=== PATIENT | female | born 1930 | race Caucasian/White ===

== ENCOUNTER 2017-12-25 17:01 | Inpatient (IN) | payer OTHER, MEDICAID ==
[~2017-12-25] VITALS: Ht 157.5 cm; Wt 49.9 kg
[2017-12-25 17:01] VITALS: BP_SYST 73; BP_SYST 96; BP_DIAS 37; BP_DIAS 45
[~2017-12-25 17:01] MED LIST: AMLO5TAB8 PO; ASPI-1271 PO; CARV3.12 PO; CHOL100011 PO; DOCU-299 PO; LEVO0.0712 PO; LISI10TA11 PO; OMEP40EC1 PO; SIMV10TA1 PO; VITA1TAB83 PO
--- NOTE | 2017-12-25 17:04 | NUR ---
PATIENT BIBA TO ED BED 2 AT THIS TIME.
[2017-12-25] MEDS ORDERED: ACET-2619 PO (17:14)
--- NOTE | 2017-12-25 17:18 | NUR ---
PATIENT [facility]ILA FROM [facility] FOR ALOC AFTER COMPLETING DIALYSIS. PT HAS BEEN ALOC FOR APPROX 15 MINS WITH INCREASED LETHARGY;UPOMN ARRIVAL TO ER PT IS RESPONDING TO QUESTIONS AND TALKING;EDEMA NOTED ON BUE AND BLE;HX OF ANEMIA, ACUTE RENAL FAILURE, PACEMAKER;LEFT UPPER CHEST MICHELLE CATH;OLD RIGHT ARM SHUNT .DRY SCAB NOTED ON BLE;SKIN IS PINK/WARM/DRY; ALERT AND AWAKE;PATIENT POSITIONED FOR COMFORT; HOB ELEVATED; BEDRAILS UP X2; BED DOWN. ALL MONITORS IN PLACED;ER MD MADE AWARE OF PT STATUS.
[2017-12-25] MEDS ORDERED: NACL 0.9% 250 ML IV ONE ×3 (17:20→20:40)
[2017-12-25 18:09] LABS: BASOPHILS # (AUTO) 0.2 K/uL (0.00-0.22); BASOPHILS % (AUTO) 1.6 % (0.0-2.0); EOSINOPHILS # (AUTO) 0.1 K/uL (0-0.4); EOSINOPHILS % (AUTO) 0.5 % (0.0-4.0); HEMATOCRIT 23.1 % (36-48); HEMOGLOBIN 7.5 g/dL (12.0-16.0); LYMPHOCYTES # (AUTO) 0.5 K/uL (2.5-16.5); LYMPHOCYTES % (AUTO) 3.4 % (20.5-51.1); MEAN CORPUSCULAR HEMOGLOBIN 31 pg (27-31); MEAN CORPUSCULAR HGB CONC 32 g/dL (33-37); MEAN CORPUSCULAR VOLUME 97 fL (80-94); MONOCYTES # (AUTO) 0.6 K/uL (0.8-1.0); MONOCYTES % (AUTO) 3.6 % (1.7-9.3); NEUTROPHILS # (AUTO) 14.1 K/uL (1.8-7.7); NEUTROPHILS % (AUTO) 90.9 % (42.2-75.2); PLATELET COUNT (AUTO) 136 K/uL (140-450); RED BLOOD CELL COUNT(AUTO) 2.39 MIL/uL (4.20-5.40); RED CELL DISTRIBUTION WIDTH 14.2 % (11.6-13.7); WHITE BLOOD COUNT (AUTO) 15.5 K/uL (4.8-10.8)
[2017-12-25 18:27] LABS: APPEARANCE,URINE CLOUDY (CLEAR); BLOOD, URINE LARGE (NEGATIVE); COLOR,URINE YELLOW (YELLOW); UGLUCOSE NEGATIVE (NEGATIVE)
[2017-12-25 18:28] LABS: BILIRUBIN,URINE NEGATIVE (NEGATIVE); LEUKOCYTE ESTERASE ,URINE 3+ (NEGATIVE); NITRITE, URINE NEGATIVE (NEGATIVE)
[2017-12-25 18:28] LABS: PROTHROMBIN TIME 12.4 secs (10.8-13.4)
[2017-12-25 18:30] LABS: ALBUMIN 1.3 g/dL (3.4-5.0); ANION GAP 10.1 (8-16); ASPARTATE AMINOTRANSFERASE 17 U/L (15-37); CARBON DIOXIDE 30.5 mmol/L (21-32); CHLORIDE 105 mmol/L (98-107); CREATININE 1.6 mg/dL (0.6-1.3); GLUCOSE 104 mg/dL (74-106); SODIUM SERUM 143 mmol/L (136-145); TOTAL BILIRUBIN 0.2 mg/dL (0.0-1.0); UREA NITROGEN, BLOOD 26 mg/dL (7-18)
[2017-12-25 18:35] LABS: POTASSIUM 2.6 mmol/L (3.5-5.1)
[2017-12-25 18:37] LABS: RBC,URINE 11-20 (MOD) /HPF (0-5); WBC,URINE 80-100 /HPF (0-5)
[2017-12-25] MEDS ORDERED: LEVOFLOXACIN 500 MG/D5W PREMIX 100 ML IV ONE (18:55)
--- NOTE | 2017-12-25 19:25 | NUR ---
REPORT RECEIVED AND WOUND PICTURES TAKEN ON DAY SHIFT BY ABE ANDERS.
--- NOTE | 2017-12-25 19:27 | NUR ---
Pt report given to milena Zaidi. Transfer of care at this time.
[2017-12-25] MEDS ORDERED: NACL 0.9% 1,000 ML IV SCH (19:42)
[2017-12-25] MEDS ORDERED: ONDANSETRON 4 MG/2 ML VIAL IVP PRN (19:45)
[2017-12-25] MEDS ORDERED: KCL 20 MEQ/WATER INJ PREMIX 200 ML IV SCH (19:50)
[2017-12-25] MEDS ORDERED: POTASSIUM CHLORIDE 10 MEQ TABER PO SCH (19:50)
--- NOTE | 2017-12-25 20:15 | NUR ---
DR LUNA MADE AWARE OF PT STATUS REGARDING BP. NS BOLUS ORDERED.
[2017-12-25 20:31] LABS: CHOL/HDL RATIO 3.3 (1-4.5); FREE T4 (FREE THYROXINE) 0.32 ng/dL (0.76-1.46); MAGNESIUM 1.6 mg/dL (1.8-2.4); PHOSPHORUS 3.4 mg/dL (2.5-4.9); THYROID STIMULATING HORMONE 57.03 uIU/mL (0.34-3.74)
[2017-12-25] MEDS ORDERED: ALBUTEROL SULFATE/IPRATROPIU 3 ML SOL IH PRN (20:55)
[2017-12-25 20:56] VITALS: BP 132/62
--- NOTE | 2017-12-25 20:56 | NUR ---
RECEIVED PATIENT FROM ER. PATIENT A&OX3. PATIENT DENIES PAIN. PATIENT HAS 5L NON REBREATHER MASK PATENT AND INTACT O2 AT 95%, PATIENT HAS SACRAL WOUND, BILATERAL DISCOLORATION ON LOWER AND UPPER EXTREMITIES, WOUND ON LEFT HEEL, WOUND ON TWO RIGHT TOES (BIG TOE AND SECOND TOE), BILATERAL WOUNDS ON KNEES. PATIENT HAS AV SHUNT ON RIGHT ARM, LEFT CHEST HAS MICHELLE CATH PATIENT STATES IS PATENT. IV SITE PATENT AND INTACT. PATIENT HAD BOWEL MOVEMENT UPON TRANSFER TO BED, PATIENT CLEANED, LINENS CHANGES. TELE BOX IN PLACE. PATIENT IS MISSING SEVERAL TEETH, STATES SHE WEARS DENTURES UPPER AND LOWER. NO SIGNS OR SYMPTOMS OF ACUTE DISTRESS NOTED. PATIENT ORIENTED TO UNIT. CALL LIGHT WITHIN REACH. WILL CONTINUE TO MONITOR.
--- NOTE | 2017-12-25 21:00 | NUR ---
NS BOLUS COMPLETE. BP RETURNED TO BASELINE.
--- NOTE | 2017-12-25 21:05 | NUR ---
Patient will be admitted to care of DR LAZARO. Admited to TELE. Will go to room 121A. Belongings list completed. Report to ABE GREGG.
--- NOTE | 2017-12-25 21:55 | NUR ---
PT HAS SPUTUM CUP. UNABLE TO PROVIDE SPUTUM AT THIS TIMR. ABE GREGG AT BEDSIDE.
[2017-12-25] MEDS: DOCUSATE SODIUM 100 MG GELCAP PO SCH (21:56)
--- NOTE | 2017-12-25 21:58 | NUR ---
REQUESTED SPUTUM SPECIMEN FROM PATIENT. PATIENT DENIES HAVING SPUTUM TO GIVE BUT WILL TRY THROUGH SHIFT.
[2017-12-25] MEDS ORDERED: POTASSIUM CHLORIDE 10 MEQ TABER PO ONE (21:59)
[2017-12-25] MEDS ORDERED: MAG SULF 2000 MG/WATER PREMIX 50 ML IV SCH (23:20)
[2017-12-26] VITALS: BP 103/53
--- NOTE | 2017-12-26 00:15 | NUR ---
ENCOURAGED PATIENT FOR SPUTUM CULTURE. UNABLE TO OBTAIN AT THIS TIME. WILL TRY AGAIN.
[2017-12-26] MEDS ORDERED: CLINDAMYCIN 600 MG/4 ML VIAL ONE (00:31)
--- NOTE | 2017-12-26 00:33 | NUR ---
IV POTASSIUM INFUSING. PER MD HOLD MIDNIGHT CLEOCIN
[2017-12-26 00:40] LABS: ANION GAP 7.9 (8-16); CARBON DIOXIDE 32.8 mmol/L (21-32); CHLORIDE 104 mmol/L (98-107); CREATININE 1.8 mg/dL (0.6-1.3); GLUCOSE 90 mg/dL (74-106); POTASSIUM 3.7 mmol/L (3.5-5.1); SODIUM SERUM 141 mmol/L (136-145); UREA NITROGEN, BLOOD 32 mg/dL (7-18)
[2017-12-26] MEDS ORDERED: MAGNESIUM OXIDE 400 MG TAB PO SCH (00:45)
[2017-12-26 04:00] VITALS: BP 98/55
[2017-12-26] MEDS ORDERED: NACL 0.9% 250 ML IV ONE (04:15)
--- NOTE | 2017-12-26 04:36 | NUR ---
PATIENT HAD A BOWEL MOVEMENT. SACRAL DRESSINGS CHANGED, MINIMAL DRAINAGE, SEROSANGUINOUS. PATIENT TOLERATED WELL. PATIENT TURNED, OFFLOAD ON PRESSURE SITES. NO SIGNS OF ACUTE DISTRESS NOTED. SAFETY MEASURES ENSURED. CALL LIGHT WITHIN REACH. WILL CONTINUE TO MONITOR.
--- NOTE | 2017-12-26 05:46 | NUR ---
REQUESTED SYNTHROID FROM WOODWORKING [employer].. WILL ADMINISTER WHEN AVAILABLE.
[2017-12-26] MEDS: CLINDAMYCIN 600 MG in DEXTROSE 5% 50 ML IV SCH ×3 (05:55)
--- NOTE | 2017-12-26 06:15 | NUR ---
ENCOURAGED PATIENT FOR SPUTUM CULTURE. PATIENT IS UNABLE TO PROVIDE ONE. WILL ENDORSE TO AM SHIFT.
[2017-12-26] MEDS ORDERED: LEVOTHYROXINE 0.088 MG TAB PO SCH (06:30)
[2017-12-26] MEDS: ALBUTEROL SULFATE/IPRATROPIU 3 ML SOL IH SCH ×2 (07:16→13:20)
--- NOTE | 2017-12-26 07:28 | NUR ---
ENDORSED PLAN OF CARE TO AM RN. PATIENT IN STABLE CONDITION.
--- NOTE | 2017-12-26 07:29 | NUR ---
RECEIVED PATIENT FROM STUDENT FINANCIAL SERVICES COUNSELOR NURSE AT BEDSIDE FOR CONTINUITY OF CARE. PATIENT A&OX3, CONFUSED. PATIENT DENIES PAIN. PATIENT HAS 3L NC O2 AT 95%, PATIENT HAS SACRAL WOUND, BILATERAL DISCOLORATION ON LOWER AND UPPER EXTREMITIES, WOUND ON LEFT HEEL, WOUND ON TWO RIGHT TOES (BIG TOE AND SECOND TOE), BILATERAL WOUNDS ON KNEES. PATIENT HAS AV SHUNT ON RIGHT ARM, LEFT CHEST HAS MICHELLE CATH PATIENT, STATES IS PATENT. IV SITE PATENT AND INTACT. NO SIGNS OR SYMPTOMS OF ACUTE DISTRESS NOTED. SAFETY PRECAUTIONS IN PLACE, CALL LIGHT WITHIN REACH. WILL CONTINUE TO MONITOR PATIENT.
[2017-12-26] MEDS ORDERED: LEVOTHYROXINE 0.025 MG TAB PO ONE (07:55)
[2017-12-26 08:00] VITALS: BP 130/79
--- NOTE | 2017-12-26 08:26 | NUR ---
PATIENT HAS BEEN SCREENED AND CATEGORIZED HIGH NUTRITION RISK. PATIENT WILL BE SEEN WITHIN 1-2 DAYS OF ADMISSION. 12/25/17-12/26/[address]
[2017-12-26 08:58] LABS: HEMATOCRIT 27.9 % (36-48); HEMOGLOBIN 9.1 g/dL (12.0-16.0); MEAN CORPUSCULAR HEMOGLOBIN 32 pg (27-31); MEAN CORPUSCULAR HGB CONC 33 g/dL (33-37); MEAN CORPUSCULAR VOLUME 97 fL (80-94); PLATELET COUNT (AUTO) 134 K/uL (140-450); RED BLOOD CELL COUNT(AUTO) 2.88 MIL/uL (4.20-5.40); RED CELL DISTRIBUTION WIDTH 14.5 % (11.6-13.7); WHITE BLOOD COUNT (AUTO) 19.5 K/uL (4.8-10.8)
[2017-12-26] MEDS ORDERED: LEVOTHYROXINE 0.1 MG TAB PO SCH (09:00)
[2017-12-26] MEDS ORDERED: LACTOBACILLUS RHAMNOSUS GG 1 EACH CAP PO SCH (09:00)
[2017-12-26] MEDS ORDERED: LEVOTHYROXINE 0.075 MG TAB PO SCH (09:00)
[2017-12-26] MEDS ORDERED: CHOLECALCIFEROL 1,000 IU TAB PO SCH (09:00)
[2017-12-26] MEDS ORDERED: LISINOPRIL 10 MG TAB PO SCH (09:00)
[2017-12-26] MEDS ORDERED: CYANOCOBALAMIN 100 MCG TAB PO SCH (09:00)
[2017-12-26] MEDS ORDERED: FOLIC ACID 1 MG TAB PO SCH (09:00)
[2017-12-26] MEDS ORDERED: PANTOPRAZOLE 40 MG TABEC PO SCH (09:00)
[2017-12-26] MEDS ORDERED: CARVEDILOL 3.125 MG TAB PO SCH (09:00)
[2017-12-26 09:07] LABS: EOSINOPHILS % (MANUAL) 1 % (0-4); LYMPHOCYTES % (MANUAL) 4 % (20-46); MONOCYTES % (MANUAL) 3 % (5-12)
[2017-12-26] MEDS ORDERED: VANCOMYCIN PER PHARMACY MC PRN (09:20)
[2017-12-26 09:45] LABS: ANION GAP 8.4 (8-16); CARBON DIOXIDE 32.4 mmol/L (21-32); CHLORIDE 105 mmol/L (98-107); CREATININE 1.9 mg/dL (0.6-1.3); GLUCOSE 102 mg/dL (74-106); POTASSIUM 4.8 mmol/L (3.5-5.1); SODIUM SERUM 141 mmol/L (136-145); UREA NITROGEN, BLOOD 33 mg/dL (7-18)
[2017-12-26] MEDS ORDERED: MEROPENEM 500 MG in NACL 0.9% 50 ML IV SCH ×2 (09:45→21:00)
[2017-12-26 09:49] LABS: MAGNESIUM 2.1 mg/dL (1.8-2.4); PHOSPHORUS 4.6 mg/dL (2.5-4.9)
--- NOTE | 2017-12-26 09:50 | NUR ---
DR. CHU IN TO SEE THE PATIENT. WILL AWAIT NEW ORDERS.
--- NOTE | 2017-12-26 09:58 | NUR ---
ADMINISTERED ORDERED MEDICATIONS. PATIENT TOLERATED THEM WELL. BP 148/72 ON LEFT CALF. SAFETY PRECAUTIONS IN PLACE, BED ON LOWEST SETTING, BED ALARM ON, CALL LIGHT WITHIN REACH. WILL CONTINUE TO MONITOR.
[2017-12-26] MEDS: DOCUSATE SODIUM 100 MG GELCAP PO SCH (09:59)
--- NOTE | 2017-12-26 10:16 | NUR ---
SUPERVISOR SHELLFISH FARMING DOING AND ECHOCARDIOGRAM ON PATIENT. WILL AWAIT FOR RESULTS.
[2017-12-26] MEDS ORDERED: VANCOMYCIN 1GM/DEXT 5% PREMIX 200 ML IV SCH (11:00)
--- NOTE | 2017-12-26 11:45 | NUR ---
ANTIBIOTICS MERREM RUNNING. NO SIGNS OF DISTRESS OR SOB NOTED. PATIENT DENIES PAIN. SAFETY PRECAUTIONS IN PLACE, BED ON LOWEST SETTING, BED ALARM ON, CALL LIGHT WITHIN REACH. WILL CONTINUE TO MONITOR PATIENT.
--- NOTE | 2017-12-26 11:45 | NUR ---
ECHO DONE. NOTIFIED PHYSICIAN OF FINDINGS.
[2017-12-26 12:00] VITALS: BP 98/49
--- NOTE | 2017-12-26 12:35 | NUR ---
PATIENT EATING LUNCH, NO SIGNS OF DISTRESS NOTED. PATIENT DENIES PAIN. SAFETY PRECAUTIONS IN PLACE, BED ON LOWEST POSITION, BED ALARM ON, CALL LIGHT WITHIN REACH. WILL CONTINUE TO MONITOR PATIENT.
--- NOTE | 2017-12-26 12:35 | NUR ---
CM NOTE INITIAL REVIEW FAXED TO [facility] [phone] JOSE # [phone]
--- NOTE | 2017-12-26 12:45 | NUR ---
PATIENT SITTING UP AND EATING PUREED LUNCH. NO SIGNS OF DISTRESS OR SOB NOTED. PATIENT DENIES PAIN. SAFETY PRECAUTIONS IN PLACE, BED IN LOWEST SETTING, BED ALARM ON, CALL LIGHT WITHIN REACH. WILL CONTINUE TO MONITOR PATIENT.
--- NOTE | 2017-12-26 13:00 | NUR ---
VANCOMYCIN INFUSING WELL. NO S/SX OF REACTION NOTED. NO SIGNS OF DISTRESS OR SOB NOTED. PATIENT DENIES PAIN. SAFETY PRECAUTIONS IN PLACE, BED ON LOWEST SETTING, BED ALARM ON, CALL LIGHT WITHIN REACH. WILL CONTINUE TO MONITOR PATIENT.
--- NOTE | 2017-12-26 13:00 | NUR ---
I attempted to contact Patient's sister Kristina Carvalho at . No response and left a MSG to call back.
--- NOTE | 2017-12-26 13:15 | NUR ---
SISTER REJI CALLED, UPDATED HER ON PATIENT'S CONDITION AND PLAN OF CARE. SISTER VERBALIZED UNDERSTANDING. RT CURRENTLY WITH PATIENT. SAFETY PRECAUTIONS IN PLACE, BED IN LOWEST SETTING, BED ALARM ON, CALL LIGHT WITHIN REACH. WILL CONTINUE TO MONITOR PATIENT.
--- NOTE | 2017-12-26 13:30 | NUR ---
POLICY CANCELLATION CLERK STATED THAT PATIENT WILL BE GIVEN DIALYSIS IN 1 HOUR.
--- NOTE | 2017-12-26 14:10 | NUR ---
TOOL FILER, TAVARES, IN TO DO WOUND ASSESSMENT AND DRESSING WITH PRIMARY RN, MICHELLE. HOWEVER, PATIENT BECAME UNRESPONSIVE, MATTHEW MCWILLIAMS WAS CALLED, COMPRESSIONS WERE STARTED. RESIDENTS DR. HENDERSON AND DR. HIGH ON THE SCENE, ER MD, DR HU CAME OVERSEE CODE.
--- NOTE | 2017-12-26 14:27 | NUR ---
1425 CALL PLACED TO PT'S SISTER REJI JACKSON AND INFORMED HER THAT PT HAS HAD A CHANGE IN CONDITION AND THAT FAMILY SHOULD COME TO THE FACILITY IF POSSIBLE. PER REJI PT DOES NOT HAVE ANY CHILDREN AND SHE IS PT'S CLOSEST RELATIVE. REJI STATED THAT SHE WOULD CALL HER SON NOW AND TRY TO GET TO THE HOSPITAL.
--- NOTE | 2017-12-26 14:40 | NUR ---
CHEST COMPRESSIONS HELD FOR RHYTHM CHECK. ASYSTOLE WAS FOUND. PATIENT HAD AGONAL BREATHING AND PULSE FOUND ON DOPPLER US. BP 125/96. PATIENT INTUBATED. PATIENT WILL BE TRANSFERRED TO ICU.
--- NOTE | 2017-12-26 14:43 | NUR ---
PATIENT BECAME UNRESPONSIVE. SECOND CODE BLUE INITIATED. COMPRESSIONS STARTED AT 1445. TIME OF CALLED AT 1500.
[2017-12-26] MEDS ORDERED: NOREPINEPHRINE 4 MG in DEXTROSE 5% 250 ML IV PRN ×2 (14:50→15:10)
--- NOTE | 2017-12-26 15:00 | NUR ---
TIME OF PRONOUNCED BY DR. HU AT 1500.
--- NOTE | 2017-12-26 15:30 | NUR ---
[facility] WAS CALLED.
--- NOTE | 2017-12-26 15:45 | NUR ---
DR. RAJPUT WAS CALLED TO UPDATE HIM ABOUT PATIENT' CONDITION.
--- NOTE | 2017-12-26 16:30 | NUR ---
THE CHIEF MEDIA OFFICER WAS CALLED, AFTER REVIEW OF THE PATIENT'S HISTORY AND COMORBIDITIES, PATIENT'S CASE WAS CLEARED BY CHIEF MEDIA OFFICER PERSONNEL NAMED SARITA, AND PATIENT CAN BE RELEASED TO THE [facility] [place]. . FAMILY, SISTER REJI, AND NEPHEW, ED, AT BEDSIDE.
[2017-12-26] MEDS ORDERED: amLODIPine 5 MG TAB PO SCH (17:00)
[2017-12-26] MEDS ORDERED: SIMVASTATIN 10 MG TAB PO SCH (17:00)
--- NOTE | 2017-12-26 17:20 | NUR ---
[facility] [employer] WAS CALLED. HISTORY AND TIME OF OF PATIENT GIVEN. THEY STATED THAT THEY WILL COME TO TAKE THE PATIENT. WILL AWAIT THEIR ARRIVAL.
--- NOTE | 2017-12-26 19:30 | NUR ---
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
[2017-12-27] MEDS ORDERED: LEVOTHYROXINE 0.1 MG TAB PO SCH (06:30)
[2017-12-27] MEDS ORDERED: ASPIRIN 81 MG TAB.CHEW PO SCH (09:00)
[2017-12-27] MEDS ORDERED: LEVOFLOXACIN 500 MG/D5W PREMIX 100 ML IV SCH (21:00)
== END 2017-12-26 19:30 | disposition expired | DRG 871 ==
LOC: MED 17:01 → MTU 19:47
PROVIDERS: ADMIT Family Medicine Sports Medicine; ATTEND Family Medicine Sports Medicine
PROC: 5A12012 Performance of Cardiac Output, Single, Manual (ICD-10-PCS; principal; 2017-12-26)
DX: A41.9 Sepsis, unspecified organism (principal); J69.0 Pneumonitis due to inhalation of food and vomit; N17.0 Acute kidney failure with tubular necrosis; I46.8 Cardiac arrest due to other underlying condition; E43 Unspecified severe protein-calorie malnutrition; G93.1 Anoxic brain damage, not elsewhere classified; G93.41 Metabolic encephalopathy; L89.159 Pressure ulcer of sacral region, unspecified stage; I50.43 Acute on chronic combined systolic (congestive) and diastolic (congestive) heart failure; N18.6 End stage renal disease; N39.0 Urinary tract infection, site not specified; N17.9 Acute kidney failure, unspecified; I13.0 Hypertensive heart and chronic kidney disease with heart failure and stage 1 through stage 4 chronic kidney disease, or unspecified chronic kidney disease; I69.354 Hemiplegia and hemiparesis following cerebral infarction affecting left non-dominant side; M48.55XA Collapsed vertebra, not elsewhere classified, thoracolumbar region, initial encounter for fracture; E11.52 Type 2 diabetes mellitus with diabetic peripheral angiopathy with gangrene; L97.429 Non-pressure chronic ulcer of left heel and midfoot with unspecified severity; L97.419 Non-pressure chronic ulcer of right heel and midfoot with unspecified severity; E11.42 Type 2 diabetes mellitus with diabetic polyneuropathy; E11.22 Type 2 diabetes mellitus with diabetic chronic kidney disease; E03.9 Hypothyroidism, unspecified; K21.9 Gastro-esophageal reflux disease without esophagitis; E78.5 Hyperlipidemia, unspecified; M62.50 Muscle wasting and atrophy, not elsewhere classified, unspecified site; R65.20 Severe sepsis without septic shock; L89.319 Pressure ulcer of right buttock, unspecified stage; S81.809A Unspecified open wound, unspecified lower leg, initial encounter; X58.XXXA Exposure to other specified factors, initial encounter; M20.42 Other hammer toe(s) (acquired), left foot; M20.41 Other hammer toe(s) (acquired), right foot; M20.5X2 Other deformities of toe(s) (acquired), left foot; M20.5X1 Other deformities of toe(s) (acquired), right foot; I25.10 Atherosclerotic heart disease of native coronary artery without angina pectoris; M19.90 Unspecified osteoarthritis, unspecified site; Z96.643 Presence of artificial hip joint, bilateral; I07.1 Rheumatic tricuspid insufficiency; D63.1 Anemia in chronic kidney disease; E87.6 Hypokalemia; Z99.2 Dependence on renal dialysis; Z88.6 Allergy status to analgesic agent; Z88.0 Allergy status to penicillin; Z95.1 Presence of aortocoronary bypass graft; Z83.3 Family history of diabetes mellitus; Y93.89 Activity, other specified; Y92.89 Other specified places as the place of occurrence of the external cause; Y99.8 Other external cause status; Z68.20 Body mass index [BMI] 20.0-20.9, adult; E11.622 Type 2 diabetes mellitus with other skin ulcer; L98.419 Non-pressure chronic ulcer of buttock with unspecified severity
CPT/HCPCS: 36415; 36600; 70450; 71045; 76604; 80048; 80053; 81001; 82533; 82803; 82948; 83036; 83605; 83735; 83880; 84100; 84439; 84443; 84479; 84484; 85025; 85610; 85730; 87040; 87081; 87086; 93005; 93880; 96361; 96365; 99291; C1758; J1956; J2185; J3370; J3480; J3490; J7030; J7060; J7620; Q0092